=== PATIENT | female | born 1995 | race Hispanic/Latino ===

== ENCOUNTER 2017-02-04 20:24 | Emergency (ER) | payer OTHER ==
[2017-02-04 20:46] VITALS: BP 131/74; PULSE 74; RESP 16; TEMP 98.5; O2SAT 100
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
== END 2017-02-04 21:50 | disposition home or self-care (01) ==
LOC: H.ER 20:24
DX: T30.0 Burn of unspecified body region, unspecified degree (principal)